=== PATIENT | female | born 1985 | race Caucasian/White ===

== ENCOUNTER 2019-04-23 10:32 | Emergency (ER) | payer OTHER ==
[~2019-04-23] VITALS: Ht 162.6 cm; Wt 90.9 kg
[2019-04-23 10:37] VITALS: BP 117/76; TEMP 98
[2019-04-23] MEDS ORDERED: PERCOCET 325 MG1 TA2 PO (11:18)
[2019-04-23] MEDS ORDERED: LIDODERM 5% PATC1 EA TP ×2 (13:04)
[2019-04-23 13:23] VITALS: PULSE 104
== END 2019-04-23 13:28 | disposition home or self-care (01) ==
LOC: COL.ER 10:32
DX: S22.069A Unspecified fracture of T7-T8 vertebra, initial encounter for closed fracture (principal); S22.079A Unspecified fracture of T9-T10 vertebra, initial encounter for closed fracture; S22.089A Unspecified fracture of T11-T12 vertebra, initial encounter for closed fracture; W01.0XXA Fall on same level from slipping, tripping and stumbling without subsequent striking against object, initial encounter; Y92.009 Unspecified place in unspecified non-institutional (private) residence as the place of occurrence of the external cause
CPT/HCPCS: J2270; J2405